=== PATIENT | female | born 1975 | race Caucasian/White ===

== ENCOUNTER → 2017-07-12 | Outpatient (CLI) | payer OTHER | LOC: BMCIMAGING 12:41 | PROVIDERS: ATTEND Family Medicine | DX: M25.522 Pain in left elbow (principal) ==

== ENCOUNTER → 2017-08-04 | Outpatient (CLI) | payer OTHER | LOC: FIMAGING 16:06 | DX: R22.42 Localized swelling, mass and lump, left lower limb (principal) ==

== ENCOUNTER → 2017-09-17 | Outpatient (CLI) | payer OTHER | LOC: BMCIMAGING 08:07 | PROVIDERS: ATTEND Family Medicine | DX: Z12.31 Encounter for screening mammogram for malignant neoplasm of breast (principal) ==